=== PATIENT | female | born 1955 | race Two or more races ===

== ENCOUNTER 2024-08-21 06:10 | Inpatient (IN) | payer MEDICARE, OTHER ==
[~2024-08-21] VITALS: Ht 160 cm; Wt 72.0 kg
[2024-08-21 06:27] VITALS: PULSE 107; RESP 26
--- NOTE | 2024-08-21 06:40 | ED.PDOC ---
History of Present Illness HPI Comments 69F BIBA w/ no prior Hx associated to the c/c of ABD pain. EMS report that pt was picked up from home, stating of having RLQ pain which radiates to the lower right back, as well as SOB. EMS state the Pt's BP on right arm was 135 systolic and the left arm being 175 systolic, Left lower lobe wheezing w/ diminished on right lower lobe on scene. EMS state that the pt informed them that she was mixing bleach with another chemical above the sink 2 weeks ago, and accidentally "burned her airway". Pt is pale when arrived to ER. PMHx of HTN. Denies chills, fever, N/V/D, CP or no other associated symptoms, modifiers, recent injuries or sick contacts at this time. Chief Complaint: Abdominal Pain Time Seen by MD: 06:20 Reviewed Notes: Nurses Notes, Delimber Operator Notes, Medications, Allergies Allergies: Coded Allergies: NO KNOWN ALLERGIES (Unverified , 08/21/24) Information Source: Emergency Med Personnel Mode of Arrival: EMS Severity: Moderate Timing: Hours Duration: Since onset, Hours Prehospital treatment: None Past Medical History PAST MEDICAL HISTORY: HTN Surgical History: Denies all surgeries TALENT DEVELOPMENT MANAGER History: No Pertinent TALENT DEVELOPMENT MANAGER History Family History Family History: Reviewed,noncontributory to illness, Unknown Social History Smoker: Non-Smoker Alcohol: Denies ETOH Use Drugs: Denies Drug Use Lives In: Home Constitutional: denies: chills, diaphoresis, fatigue, fever, malaise, sweats, weakness, others EENTM: denies: blurred vision, double vision, ear bleeding, ear discharge, ear drainage, ear pain, ear ringing, eye pain, eye redness, hearing loss, mouth pain, mouth swelling, nasal discharge, nose bleeding, nose congestion, nose pain, photophobia, tearing, throat pain, throat swelling, voice changes, others Respiratory: reports: shortness of breath; denies: cough, hemoptysis, orthopnea, SOB at rest, SOB with excertion, stridor, wheezing, others Cardiovascular: denies: chest pain, dizzy spells, diaphoresis, Dyspnea on exertion, edema, irregular heart beat, left arm pain, lightheadedness, palpitations, PND, syncope, others Gastrointestinal: reports: abdominal pain; denies: abdomen distended, blood streaked bowels, constipated, diarrhea, dysphagia, difficulty swallowing, hematemesis, melena, nausea, poor appetite, poor fluid intake, rectal bleeding, rectal pain, vomiting, others Genitourinary: denies: abnormal vagina bleeding, burning, dyspareunia, dysuria, flank pain, frequency, hematuria, incontinence, pain, , vagina discharge, urgency, others Neurological: denies: dizziness, fainting, headache, left sided numbness, left sided weakness, numbness, paresthesia, pre-existing deficit, right sided numbness, right sided weakness, seizure, speech problems, tingling, tremors, weakness, others Musculoskeletal: reports: back pain; denies: gout, joint pain, joint swelling, muscle pain, muscle stiffness, neck pain, others Integumetry: denies: bruises, change in color, change in hair/nails, dryness, laceration, lesions, lumps, rash, wounds, others Allergic/Immunocompromised: denies: Difficulty Healing, Frequent Infections, Hives, Itching, others Hematologic/Lymphatic: denies: anemia, blood clots, easy bleeding, easy br uising, swollen glands, others Endocrine: denies: excessive hunger, excessive sweating, excessive thirst, excessive urination, flushing, intolerance to cold, intolerance to heat, unexplained weight gain, unexplained weight loss, others Psychiatric: denies: anxiety, bipolar disorder, depression, hopeless, panic disorder, schizophrenia, sleepless, suicidal, others All Other Systems: Reviewed and Negative Physical Exam General Appearance: Normal, Severe Distress HEENT: Normal ENT Inspection, Pharynx Normal, TMs Normal Neck: Full Range of Motion, Non-Tender, Normal, Normal Inspection Respiratory: Accessory Muscle Use, Chest Non-Tender, Respiratory Distress, Other (Had to intubate the patient) Cardiovascular: No Edema, No JVD, No Murmur, No Gallop, Normal Peripheral Pulses, Tachycardia Breast Exam: Deferred Gastrointestinal: No Organomegaly, Non Tender, No Pulsatile Mass, Normal Bowel Sounds, Soft Genitalia: Deferred Pelvic: Deferred Rectal: Deferred Extremities: No calf tenderness, Normal capillary refill, Normal range of motion, Non-tender, No pedal edema, Other (Moving all extremities) Musculoskeletal : Apperance: Normal Neurologic: Disoriented, No Motor Deficits, No Sensory Deficits Cerebellar Function: NOT DONE Reflexes: NOT DONE Skin: Dry, Pallor, Warm, Other (Skin mottled) Peripheral Pulses: 3+ Radial (R), 3+ Radial (L) Lymphatic: No Adenopathy Was a procedure done? Was a procedure done?: Yes Sedation Sedation?: No Central Line Recorder of insertion practice: [employer] Occupation of senior windows systems engineer: Attending Physician Indication: Hypotension, CVP monitoring Room prepared for procedure: Yes [employer] performed hand hygien: Yes Maximal sterile barrier precau: Mask/Eye shield, Sterile gown Skin Preparation: Chlorhexidine gluconate, Providine iodine Skin preparation completely dr: Yes Insertion site: Right, Internal jugular Central line catheter type: [id number] dialysis Number of lumens: 3 Antiseptic ointment applied to: Yes Post Assessment: Chest X-Ray Intubation Indication: Respiratory Insufficiency Prep: Preoxygenation Pretreated with: Analgesia Medicated with: Vecuronium Intubation Approach: Orotracheal Intubation size: cm (8) Differential Dx Considerations may include: COPD Pneumonia X-Ray, Labs, Meds, VS Vital Signs Date Time Temp Pulse Resp B/P (MAP) Pulse Ox O2 Delivery O2 Flow Rate FiO2 08/21/24 08:16 129 178/80 08/21/24 08:04 156/86 08/21/24 06:47 111 18 170/90 (116) 95 100 08/21/24 06:44 170/90 08/21/24 06:27 107 26 171/97 (121) 08/21/24 06:27 107 26 Nasal Cannula* 4 36 08/21/24 06:12 109 08/21/24 06:10 115 33 175/95 (121) 95 Lab Test 08/21/24 07:58 08/21/24 07:28 08/21/24 07:13 08/21/24 06:29 Range/Units Lactic Acid Level Pending 10.5 *H 0.4-2.0 mmol/L Troponin I High Sensitivity 4380 *H 4639 *H </=34 ng/L Urine Color Yellow Yellow Urine Clarity Clear Clear Urine pH 6.0 5.0-9.0 Urine Specific [place] 1.033 1.001-1.035 Urine Protein 1+ H Negative Urine Ketones 3+ H Negative Urine Blood Negative Negative /uL Urine Nitrite Negative Negative Urine Bilirubin Negative Negative Urine Urobilinogen 2 H Negative mg/dL Urine Leukocyte Esterase Negative Negative /uL Urine RBC <1 0 - 4 /hpf Urine Microscopic WBC 1 0-5 /HPF Urine Squamous Epithelial Cells Few <5 /hpf Urine Bacteria None seen None Seen /hpf Urine Mucus Few None Seen Urine Glucose Normal Normal mg/dL White Blood Count 22.1 H 4.4-10.8 10^3/uL Red Blood Count 3.60 L 4.0-5.20 10^6/uL Hemoglobin 13.4 12.2-16.2 g/dL Hematocrit 41.5 36.0-46.0 % Mean Corpuscular Volume 115.5 H 80.0-100.0 fL Mean Corpuscular Hemoglobin 37.2 H 28.0-32.0 pg Mean Corpuscular Hemoglobin Concent 32.3 32.0-36.0 g/dL Red Cell Distribution Width 15.0 H 11.8-14.3 % Platelet Count 488 H 140-450 10^3/uL Mean Platelet Volume 9.5 6.9-10.8 fL Neutrophils (%) (Auto) 91.1 H 37.0-80.0 % Lymphocytes (%) (Auto) 5.4 L 10.0-50.0 % Monocytes (%) (Auto) 3.3 0.0-12.0 % Eosinophils (%) (Auto) 0.0 0.0-7.0 % Basophils (%) (Auto) 0.2 0.0-2.0 % Neutrophils # (Auto) 20.1 H 1.6-8.6 10 ^3/uL Lymphocytes # (Auto) 1.2 0.4-5.4 10 ^3/uL Monocytes # (Auto) 0.7 0-1.3 10 ^3/uL Eosinophils # (Auto) 0 0-0.8 10 ^3/uL Basophils # (Auto) 0 0-0.2 10 ^3/uL Nucleated Red Blood Cells 0.0 % Sodium Level 134 L 136-145 mmol/L Potassium Level 3.8 3.5-5.1 mmol/L Chloride Level 101 98-107 mmol/L Carbon Dioxide Level 11 L 20-31 mmol/L Anion Gap 22 H 5-15 Blood Urea Nitrogen 11 9-23 mg/dL Creatinine 1.08 H 0.550-1.02 mg/dL Glomerular Filtration Rate Calc 56 >90 mL/min BUN/Creatinine Ratio 10.2 10.0-20.0 Serum Glucose 382 H 74-106 mg/dL Calcium Level 10.2 8.7-10.4 mg/dL Current Medications Medications (Trade) Dose Ordered Sig/Kathleen Route Start Time Stop Time Status Last Admin Albuterol (Ventolin Medneb) 5 mg ONCE ONCE NEB 08/21/24 06:45 08/21/24 06:46 DC 08/21/24 07:18 Ipratropium [place] (Atrovent Medneb) 0.5 mg ONCE ONCE NEB 08/21/24 06:45 08/21/24 06:46 DC 08/21/24 07:17 Methylprednisolone Sodium Succinate (Solu Medrol) 125 mg ONCE ONCE IV 08/21/24 06:45 08/21/24 06:46 DC 08/21/24 07:22 Sodium Chloride 1,000 ml @ 1,000 mls/hr Q1H ONCE IV 08/21/24 06:45 08/21/24 07:44 DC 08/21/24 06:53 Rocuronium [place] 100 mg ONCE ONCE IV 08/21/24 06:45 08/21/24 06:46 DC 08/21/24 06:44 Etomidate 20 mg ONCE ONCE IV 08/21/24 06:45 08/21/24 06:46 DC 08/21/24 06:47 Midazolam HCl 50 ml @ 1 mls/hr Q24H IV 08/21/24 07:15 08/21/24 08:04 Ceftriaxone Sodium 50 ml @ 100 mls/hr ONCE ONCE IV 08/21/24 07:15 08/21/24 07:44 DC 08/21/24 07:20 Clindamycin Phosphate 50 ml @ 50 mls/hr ONCE ONCE IV 08/21/24 07:15 08/21/24 08:14 DC 08/21/24 08:16 Labetalol HCl (Labetalol HCl) 10 mg ONCE ONCE IV 08/21/24 07:45 08/21/24 07:46 DC 08/21/24 08:16 Sodium Chloride 1,000 ml @ 1,160 mls/hr Q52M ONCE IV 08/21/24 08:15 08/21/24 09:06 08/21/24 08:15 Patient slightly disoriented. Able to answer simple questions. Moving all extremities. Tachycardia. Skin mottled. She is pale. Unable to get good history from the patient. She does live alone. Possibly had chemical ingestion several weeks ago. Possible pneumonitis. Possible pneumonia. Chest x-ray reviewed does show combination. Establish intravenous access. Central line placement. Intubation. Started Rocephin. Was given clindamycin for possible aspiration pneumonia. Blood pressure slightly elevated. Continue to monitor. Was given labetalol. Sepsis protocol. EKG reviewed does show ST changes. Reviewed with Cardiology. She will need echocardiogram. Cardiology consultation. Continue to monitor. ABG reviewed does show metabolic acidosis. Was given bicarbonate. Time of 1ST Reevaluation: 06:50 Reevaluation 1ST: Unchanged Patient Education/Counseling: Diagnosis, Treatment, Prognosis Family Education/Counseling: No Family Present Departure 1 Departure Time of Disposition: 07:26 Impression: Primary Impression: Acute respiratory failure Qualified Codes: J96.01 - Acute respiratory failure with hypoxia Additional Impressions: Aspiration pneumonia Qualified Codes: J69.0 - Pneumonitis due to inhalation of food and vomit Sepsis Qualified Codes: A41.9 - Sepsis, unspecified organism Hypertensive urgency NSTEMI (non-ST elevated myocardial infarction) Disposition: 09 ADMITTED INPATIENT Admit to: ICU Condition: Guarded Critical Care Note Critical Care Time?: Yes (90 min-critical care time only) Stability Stability form required: No Heart Score Heart Score: Heart Score Response (Comments) Value History Slightly Suspicious 0 EKG Normal 0 Age >65 2 Risk Factors >3 or Hx ASHD 2 Troponin >3 x's Normal limit 2 Total 6 I personally scribed for DIANA GUTIERREZ MD ([email or web address]) on 08/21/24 at 06:40. Electronically submitted by Silver Davis ([email or web address]). DIANA GUTIERREZ MD Aug 21, 2024 06:40
[2024-08-21] MEDS: ROCURONIUM 10MG/ML 10ML VIAL IV ONE ×3 (06:44→06:53)
[2024-08-21] MEDS: SODIUM CHLORIDE 0.9% 1,000 ML IV ONE ×3 (06:45→08:15)
[2024-08-21] MEDS: ETOMIDATE (2MG/ML) 20ML VIAL IV ONE ×2 (06:47→06:53)
[2024-08-21] MEDS: MIDAZOLAM DRIP 50 mg/50mL 50 ML IV ONE (07:09)
[2024-08-21 07:13] LABS: Urine Bacteria None Seen /hpf (None Seen)
[2024-08-21] MEDS: IPRATROPIUM BROM 0.5 MG/2.5ML INH SOL NEB ONE (07:17)
[2024-08-21] MEDS: ALBUTEROL SULF 2.5 MG/0.5ML(0.5%) NEB SOLN NEB ONE (07:18)
[2024-08-21] MEDS: cefTRIAXone 1GM/50ML D5W 50 ML IV ONE (07:20)
[2024-08-21 07:21] LABS: Basophils # (auto) 0 10 ^3/uL (0-0.2); Eosinophils # (auto) 0 10 ^3/uL (0-0.8); Lymphocytes # (auto) 1.2 10 ^3/uL (0.4-5.4)
--- NOTE | 2024-08-21 07:21 | DVH ---
EXAM: XR Chest, 1 View CLINICAL INDICATION: sob TECHNIQUE: Frontal view of the chest. COMPARISON: None FINDINGS: LUNGS AND PLEURAL SPACES: Pulmonary congestion and edema. Pneumonia cannot be excluded. No pneumot horax. HEART: Unremarkable. No cardiomegaly. MEDIASTINUM: Unremarkable. Normal mediastinal contour. BONES/JOINTS: Unremarkable. No acute fracture. TUBES, LINES AND DEVICES: The endotracheal tube (ETT) is in satisfactory position. Right internal jugular central venous catheter tip in the superior vena cava. Enteric tube tip in the stomach. OTHER FINDINGS: . IMPRESSION: Pulmonary congestion and edema. Pneumonia cannot be excluded.
[2024-08-21 07:22] LABS: Basophils % (auto) 0.2 % (0.0-2.0); Hematocrit 41.5 % (36.0-46.0); Hemoglobin 13.4 g/dL (12.2-16.2); Lymphocytes % (auto) 5.4 % (10.0-50.0); Mean Corpuscular Hemoglobin 37.2 pg (28.0-32.0); Mean Corpuscular Hgb Conc. 32.3 g/dL (32.0-36.0); Mean Corpuscular Volume 115.5 fL (80.0-100.0); Monocytes # (auto) 0.7 10 ^3/uL (0-1.3); Monocytes % (auto) 3.3 % (0.0-12.0); Neutrophils # (auto) 20.1 10 ^3/uL (1.6-8.6); Neutrophils % (auto) 91.1 % (37.0-80.0); Platelet Count (auto) 488 10^3/uL (140-450); White Blood Cell 22.1 10^3/uL (4.4-10.8)
[2024-08-21] MEDS: methylPREDNISolone SOD SUCC 125 MG/2 ML VL IV ONE (07:22)
[2024-08-21 07:28] LABS: Chloride 101 mmol/L (98-107); Potassium 3.8 mmol/L (3.5-5.1)
[2024-08-21 07:29] LABS: Anion Gap 22 (5-15); Calcium 10.2 mg/dL (8.7-10.4)
[2024-08-21 07:34] LABS: BUN/Creatinine Ratio 10.2 (10.0-20.0); Blood Urea Nitrogen 11 mg/dL (9-23)
[2024-08-21 07:36] LABS: Carbon Dioxide 11 mmol/L (20-31); Glucose 382 mg/dL (74-106); Sodium 134 mmol/L (136-145)
[2024-08-21 07:38] LABS: Urine Blood Negative /uL (Negative); Urine Clarity Clear (Clear); Urine Color Yellow (Yellow); Urine Mucus FEW (None Seen); Urine Protein, UAD 1+ (Negative); Urine Specific Gravity 1.033 (1.001-1.035); Urine Squamous Epithelial Cell FEW /hpf (<5); Urine Urobilinogen 2 mg/dL (Negative); Urine WBC 1 /HPF (0-5)
[2024-08-21 07:40] LABS: Lactic Acid w/Reflex 10.5 mmol/L (0.4-2.0)
[2024-08-21] MEDS: HEPARIN SODIUM (PORCINE) 5000 UNITS/ML 1ML VIAL IV ONE (07:45)
[2024-08-21] MEDS: MIDAZOLAM DRIP 50 mg/50mL 50 ML IV SCH (08:04)
[2024-08-21] MEDS: LABETALOL HCL 20 MG/4 ML VL IV ONE (08:16)
[2024-08-21] MEDS: CLINDAMYCIN 300MG IV 50 ML IV ONE (08:16)
[2024-08-21 08:21] LABS: Base Excess -17.8 mmol/L (-2.0-3.0)
[2024-08-21] MEDS ORDERED: ACETAMINOPHEN 325 MG TAB PO PRN (08:30)
[2024-08-21] MEDS: SODIUM CHLORIDE 0.9% 1,000 ML IV SCH (08:30)
[2024-08-21] MEDS ORDERED: NITROGLYCERIN 0.4 MG SL TAB SL PRN (08:30)
[2024-08-21] MEDS ORDERED: ONDANSETRON HCL 4 MG/2 ML VIAL IV PRN (08:30)
[2024-08-21] MEDS ORDERED: DEXTROSE (50%) 50ML SYRG IV PRN (08:30)
[2024-08-21] MEDS: SODIUM BICARB 8.4% 50Meq/50ml SYR Vial IV ONE ×2 (08:30→09:15)
[2024-08-21] MEDS ORDERED: MORPHINE SULFATE INJ 2 MG/ml SYRG IV PRN (08:30)
[2024-08-21] MEDS: EPINEPHrine HCL 1 MG/10 ML SYRG IV ONE (08:38)
[2024-08-21] MEDS: EPINEPHrine HCL 250 ML IV ONE (08:40)
[2024-08-21] MEDS: EPINEPHrine HCL 250 ML IV SCH (08:49)
[2024-08-21] MEDS: DOPamine 1600MCG/ML D5W 250 ML IV SCH (08:49)
--- NOTE | 2024-08-21 08:54 | DVHHP2 ---
History of Present Illness Reason for Visit: SOB History of Present Illness Yesy Ibarra is a 69-year-old female with past medical history of hypertension and arthritis who presents to the ED with shortness of breath. Per daughter at bedside Lucia she reports that her mom called her at 5:00 a.m. this morning and when she had shown up to her residence where she lives alone her mom had tongue swelling and was complaining of shortness of breath. Patient's daughter states that 2 weeks ago her mom was cleaning the house with CLR with a mop. Per daughter she states that her mom was complaining of possibly burning her airway and refused to go to see a doctor or go to the hospital. The patient's daughter she states that her had few years ago and then her sister had around the same time and her mom has been pretty depressed and reluctant to go into hospital's her Ca provider. Daughter states that she gave her mom Mucinex to take and also her albuterol inhaler which provided minimal relief. Daughter also reports that her mom has fallen multiple times either from the has been falling on top of her or hitting her chin on the ground which caused several of her teeth to become dislodged. Per daughter she states that mom does not also take medications for her high blood pressure because it makes her teeth become loose. Currently at this time patient is intubated on the ventilator. Patient's daughter also reports that patient quit smoking cigarettes, drinks alcohol occasionally, and does not use illicit drugs. Patient's daughter also reports that her mom does not have diabetes and she eats healthy but just has not had an appetite due to the recent loss of loved ones. Daughter states that she lives close by and checks on her mom regularly. Cardiovascular: HTN Past Medical History Arthritis Past Surgical History: None Family History: Other (Spouse and sister ) Smoke: Quit ALCOHOL: occassional Drugs: None Lives: Alone Domestic Violence: Neg Review of Systems Respiratory: Shortness of breath Allergies: Coded Allergies: NO KNOWN ALLERGIES (Unverified , 08/21/24) Medications Current Medications Medications Dose Ordered Sig/Kathleen Route Start Time Stop Time Status Last Admin Dose Admin Midazolam HCl 50 ml @ 1 mls/hr Q24H IV 08/21/24 07:15 08/21/24 08:04 1 MLS/HR Ceftriaxone Sodium 50 ml @ 100 mls/hr DAILY@09 IV 08/21/24 09:00 UNV Clindamycin Phosphate 50 ml @ 50 mls/hr Q8HR IV 08/21/24 14:00 UNV Methylprednisolone Sodium Succinate 80 mg Q8HR IV 08/21/24 14:00 UNV Albuterol 2.5 mg Q4HR NEB 08/21/24 10:00 UNV Ipratropium [place] 0.5 mg Q4HR NEB 08/21/24 10:00 UNV Sodium Chloride 1,000 ml @ 100 mls/hr Q10H IV 08/21/24 08:30 UNV Ondansetron HCl 4 mg Q4HP PRN IV 08/21/24 08:30 UNV Enoxaparin Sodium 40 mg DAILY SC 08/21/24 10:00 UNV Acetaminophen 650 mg Q6HP PRN PO 08/21/24 08:30 UNV Nitroglycerin 0.4 mg Q5MINP PRN SL 08/21/24 08:30 UNV Morphine Sulfate 2 mg Q30M PRN IV 08/21/24 08:30 UNV Diagnostic Test (Pha) 1 strip Q6HR 08/21/24 12:00 UNV Insulin Human Regular Q6HR SC 08/21/24 12:00 UNV Dextrose 50 ml UD PRN IV 08/21/24 08:30 UNV Exam Vital Signs Vital Signs Date Time Temp Pulse Resp B/P (MAP) Pulse Ox O2 Delivery O2 Flow Rate FiO2 08/21/24 08:16 129 178/80 08/21/24 06:47 18 95 100 08/21/24 06:27 Nasal Cannula* 4 HEENT: Atraumatic Respiratory: Normal air movement Cardiovascular: Normal S1, Normal S2, No murmurs Abdominal: Soft Extremities: No clubbing, No cyanosis, No edema, Normal pulses Labs/Xrays Labs Test 08/21/24 08:15 08/21/24 07:58 08/21/24 07:28 08/21/24 07:13 Range/Units Blood Gas Specimen Type Arterial Blood Gas Sample Site Right radial Blood Gas Patient Temperature 37.0 Arterial Blood Date Drawn [id number] Arterial Blood pH 7.060 *L 7.350-7.450 Arterial Blood Partial Pressure CO2 43.8 32.0-45.0 mmHg Arterial Blood Partial Pressure O2 131.8 H 83.0-108.0 mmHg Arterial Blood HCO3 12.1 L 21.0-28.0 mmol/L Arterial Blood Oxygen Saturation 97.4 94.0-98.0 % Arterial Blood Base Excess -17.8 L -2.0-3.0 mmol/L Arterial Blood Oxyhemoglobin 96.3 94.0-98.0 % Arterial Blood Carboxyhemoglobin 0.8 0.5-1.5 % Arterial Blood Methemoglobin 0.3 0.0-1.5 % Saul Test Modified Blood Gas Total Hemoglobin 14.30 12.0-16.0 g/dL Blood Gas Set Respiration Rate 18.0 Blood Gas Modality Vent - ac FiO2 % 100.0 Blood Gas Tidal Volume 500.0 Blood Gas PEEP or CPAP 5.0 Blood Gas Critical Value Read Back Yes Blood Gas Notified Whom Shelbi simmons md Blood Gas Notified Time [id number] Blood Gas Notified By Yvon winn rrt Troponin I High Sensitivity 4380 *H </=34 ng/L Urine Color Yellow Yellow Urine Clarity Clear Clear Urine pH 6.0 5.0-9.0 Urine Specific [place] 1.033 1.001-1.035 Urine Protein 1+ H Negative Urine Ketones 3+ H Negative Urine Blood Negative Negative /uL Urine Nitrite Negative Negative Urine Bilirubin Negative Negative Urine Urobilinogen 2 H Negative mg/dL Urine Leukocyte Esterase Negative Negative /uL Urine RBC <1 0 - 4 /hpf Urine Microscopic WBC 1 0-5 /HPF Urine Squamous Epithelial Cells Few <5 /hpf Urine Bacteria None seen None Seen /hpf Urine Mucus Few None Seen Urine Glucose Normal Normal mg/dL Test 08/21/24 06:29 Range/Units White Blood Count 22.1 H 4.4-10.8 10^3/uL Red Blood Count 3.60 L 4.0-5.20 10^6/uL Hemoglobin 13.4 12.2-16.2 g/dL Hematocrit 41.5 36.0-46.0 % Mean Corpuscular Volume 115.5 H 80.0-100.0 fL Mean Corpuscular Hemoglobin 37.2 H 28.0-32.0 pg Mean Corpuscular Hemoglobin Concent 32.3 32.0-36.0 g/dL Red Cell Distribution Width 15.0 H 11.8-14.3 % Platelet Count 488 H 140-450 10^3/uL Mean Platelet Volume 9.5 6.9-10.8 fL Neutrophils (%) (Auto) 91.1 H 37.0-80.0 % Lymphocytes (%) (Auto) 5.4 L 10.0-50.0 % Monocytes (%) (Auto) 3.3 0.0-12.0 % Eosinophils (%) (Auto) 0.0 0.0-7.0 % Basophils (%) (Auto) 0.2 0.0-2.0 % Neutrophils # (Auto) 20.1 H 1.6-8.6 10 ^3/uL Lymphocytes # (Auto) 1.2 0.4-5.4 10 ^3/uL Monocytes # (Auto) 0.7 0-1.3 10 ^3/uL Eosinophils # (Auto) 0 0-0.8 10 ^3/uL Basophils # (Auto) 0 0-0.2 10 ^3/uL Nucleated Red Blood Cells 0.0 % Sodium Level 134 L 136-145 mmol/L Potassium Level 3.8 3.5-5.1 mmol/L Chloride Level 101 98-107 mmol/L Carbon Dioxide Level 11 L 20-31 mmol/L Anion Gap 22 H 5-15 Blood Urea Nitrogen 11 9-23 mg/dL Creatinine 1.08 H 0.550-1.02 mg/dL Glomerular Filtration Rate Calc 56 >90 mL/min BUN/Creatinine Ratio 10.2 10.0-20.0 Serum Glucose 382 H 74-106 mg/dL Calcium Level 10.2 8.7-10.4 mg/dL EXAM: XR Chest, 1 View CLINICAL INDICATION: sob TECHNIQUE: Frontal view of the chest. COMPARISON: None FINDINGS: LUNGS AND PLEURAL SPACES: Pulmonary congestion and edema. Pneumonia cannot be excluded. No pneumothorax. HEART: Unremarkable. No cardiomegaly. MEDIASTINUM: Unremarkable. Normal mediastinal contour. BONES/JOINTS: Unremarkable. No acute fracture. TUBES, LINES AND DEVICES: The endotracheal tube (ETT) is in satisfactory p osition. Right internal jugular central venous catheter tip in the superior vena cava. Enteric tube tip in the stomach. OTHER FINDINGS: . IMPRESSION: Pulmonary congestion and edema. Pneumonia cannot be excluded. Assessment/Plan Assessment/Plan Assessment NSTEMI Acute hypoxic respiratory failure Pneumonia probable sepsis Lactic acidosis likely due to sepsis Leukocytosis likely due to sepsis Hypertensive urgency Acute respiratory acidosis Hyponatremia ADITI Hyperglycemia History of hypertension History of arthritis Plan Admit to ICU Intubated on ventilator Pulmonary consulted UA Chest x-ray noted IV antibiotics-clindamycin + ceftriaxone IV fluids Duo nebs IV steroids CT abdomen and pelvis Beta-blockers ordered in ED Cardiac consult CT head ABG Respiratory culture Trend troponins Lactic level Blood cultures EKG Discussed plan of care with patient's daughter and nurse Per daughter patient does not take any prescription medications DVT prophylaxis-Lovenox PUD prophylaxis-famotidine Pressor as needed to keep maps greater than 65 Angio today Plan discussed with: Daughter My Orders Orders - ABI SALAZAR INSURANCE CODER Procedure Category Date Status Time Ceftriaxone 1gm/50ml PHA 08/21/24 Logged D5w (Rocephin) 09:00 Clindamycin 600mg Iv PHA 08/21/24 Logged (Cleocin Iv) 14:00 Methylprednisolone PHA 08/21/24 Logged Sod Succ (Solu Medrol 14:00 Albuterol Medneb PHA 08/21/24 Logged (Ventolin Medneb) 10:00 Ipratropium Medneb PHA 08/21/24 Logged (Atrovent Medneb) 10:00 Admit ADMIT 08/21/24 Transmitted 08:28 Allergies MAX 08/21/24 In Process 08:28 Code Status CODE 08/21/24 Transmitted 08:28 Sodium Chloride 0.9% PHA 08/21/24 Logged 08:30 Ondansetron Hcl PHA 08/21/24 Logged (Zofran) 08:30 Enoxaparin Sodium PHA 08/21/24 Logged (Lovenox) 10:00 Complete Blood Count LAB 08/22/24 Verified 04:00 Comprehensive LAB 08/22/24 Verified Metabolic Panel 04:00 Npo (Nothing By DIET 08/21/24 Transmitted Mouth) Diet Breakfast Echo 2d Mode Cardiac US 08/21/24 Logged DOP 08:28 Acetaminophen Tablet PHA 08/21/24 Logged (Tylenol Tablet) 08:30 Nitroglycerin PHA 08/21/24 Logged Sublingual (Ntrostat 08:30 Morphine Sulfate PHA 08/21/24 Logged Injection 08:30 Stat Ekg For Chest MAX 08/21/24 In Process Pain 08:28 Notify Of Changes MAX 08/21/24 In Process From Base 08:28 Record Center Specialist For MAX 08/21/24 In Process 24 Hours 08:28 Emergency Dysrhythmia MAX 08/21/24 In Process Protocol 08:28 Rhythm Strips Once MAX 08/21/24 In Process Every Shift 08:28 Oxygen By Nasal RT 08/21/24 Transmitted Cannula 08:28 Glucose Blood PHA 08/21/24 Logged (Accu-Chek Comfort 12:00 Insulin R (Human) PHA 08/21/24 Logged (Insulin R) 12:00 Dextrose 50% Syringe PHA 08/21/24 Logged 08:30 Hemoglobin A1c LAB 08/21/24 Logged 08:28 Date of Service: Aug 21, 2024 Billing Provider: ABI SALAZAR Common Visit Codes: [id number] INP/OBS CARE (HIGH) ABI SALAZAR Aug 21, 2024 08:53
[2024-08-21] MEDS: cefTRIAXone 1GM/50ML D5W 50 ML IV SCH (09:00)
[2024-08-21 09:25] VITALS: TEMP 95.9
--- NOTE | 2024-08-21 09:26 | DVH ---
CT HEAD WITHOUT CONTRAST INDICATION: altered EXAM DATE: 08/21/2024 08:50 AM COMPARISON: None RADIATION DOSE: CTDIvol: 47.81 mGy, DLP: 865.2 mGy*cm PROCEDURE: CT scans of the head were obtained from the vertex to the skull base. Sagittal and coronal reconstructions were provided. All CT scans at this medical facility are performed using dose modulation techniques as appropriate t o a performed exam including the following: Automated exposure control was utilized; adjustment of th e MA and/or KV according to patient size; and use of iterative reconstruction technique. FINDINGS: There is sulcal and ventricular prominence. The brainshows normal morphology and banerjee-whi te matter differentiation, without intracranial hemorrhage, extra-axial fluid collection, mass effect or acute large vessel infarct. The ventricles are normal in size. The basal cisterns are patent. The skull and visible facial bones are intact. The paranasal sinuses, mastoid air cells and middle ear c avities are well-aerated. The soft tissues of the scalp are unremarkable. IMPRESSION: No acute intracranial abnormality.
--- NOTE | 2024-08-21 09:31 | DVH ---
CT CHST AB PEL WO CON-NO IV/ORAL INDICATION: PULMONARY CONGESTION; ABDOMINAL PAIN EXAM DATE: 08/21/2024 08:52 AM COMPARISON: None RADIATION DOSE: CTDIvol: 10.02 mGy, DLP: 609.56 mGy*cm PROCEDURE: Helical CT images were obtained of the chest, abdomen, and pelvis without intravenous cont rast. Sagittal and coronal reconstructions are provided. ORAL CONTRAST: None. ADDITIONAL IMAGES / REFORMATS: None All CT scans at this medical facility are performed using dose modulation techniques as appropriate t o a performed exam including the following: Automated exposure control was utilized; adjustment of th e MA and/or KV according to patient size; and use of iterative reconstruction technique. FINDINGS: CHEST: BONES: Scattered degenerative changes are noted in the visualized osseous structures. CHEST WALL: Normal. SOFT TISSUES:Normal. MEDIASTINUM: Normal. HEART: Normal. VESSELS: Central venous catheter is seen. LYMPH NODES: Normal. PLEURA: Small bilateral pleural effusion. AIRWAYS: And endotracheal tube is seen in the lower thoracic trachea. LUNG: Diffuse bilateral ground glass opacities with basilar consolidation. ABDOMEN AND PELVIS: BONES: Scattered degenerative changes are noted in the visualized osseous structures. LIVER: Normal. GALLBLADDER AND BILIARY TREE: No calcified gallstones. Normal caliber wall. No intra- or extrahepatic biliary ductal dilation. PANCREAS: Mild peripancreatic fat stranding / edema.. SPLEEN: Normal. BOWEL: Mild colonic diverticulosis. Normal appendix. Rectal tube is seen.. ADRENALS: Normal. KIDNEYS AND URETER: Bilateral nonobstructive kidney stones.. BLADDER: Decompressed with a rosario. REPRODUCTIVE ORGANS: Normal. LYMPH NODES:No lymphadenopathy. PERITONEUM: No ascites or free air. No other fluid collection. VESSELS: Normal RETROPERITONEUM: Normal. ABDOMINAL WALL: Normal. IMPRESSION: Diffuse bilateral ground glass opacities with basilar consolidation. This could be severe pulmonary e raymond, pneumonia, ARDS. Mild peripancreatic fat stranding / edema could be mild pancreatitis. Bilateral nonobstructive kidney stones.
--- NOTE | 2024-08-21 09:34 | RESUS ---
CODE BLUE ASSESSSMENT History of Events History of Events: Patient is currently intubated. Awaiting admit orders. Per primary RN, patient was transported to radiology for ordered CT scan where patient was noted to become bradycardic. Upon assessment no pulse detected. CODE BLUE initiated. Initial Information Date: Aug 21, 2024 Time: 08:39 Location of Arrest: ER Arrest Witnessed: Yes CPR started initial time: 08:39 CPR started by whom: Hospital Staff Pre-Hospital Care: ACLS Type of arrest: Cardiac, Respiratory Spontaneous Respirations: No Pulse Present: No Monitoring: Telemetry Crash Cart Opened and Supplies: Yes Airway Ventilation Breathing at Onset: Assisted Oxygen Delivery Method: Ambu-Bag Artificial Ventilation: Bag/Endo tube Comments: patient intubated prior to CODE BLUE Circulation Circulation #1: Time: 08:42 Circulation Comment: asystole Circulation #2: Time: 08:44 Circulation Comment: asystole Circulation #3: Time: 08:46 Circulation Comment: PEA Circulation #4: Time: 08:48 Pulse Rate (adult): 52 Blood Pressure Systolic: 88 Blood Pressure Diastolic: 61 Temperature (Fahrenheit): 95.5 Circulation Comment: bradycardic Medications & Response Medications and Responses #1: Medication Time: 08:40 ADULT Medications Given ADULT: Epinephrine 1 mg Route of Administration: IV EKG Rhythm: Asystole Medications and Responses #2: Medication Time: 08:41 ADULT Medications Given ADULT: 2 Amps Na Bicarb Medications and Responses #3: Medication Time: 08:45 ADULT Medications Given ADULT: Epinephrine 1 mg Route of Administration: IV EKG Rhythm: Asystole Medications and Responses #4: Medication Time: 08:46 ADULT Medications Given ADULT: Sodium Bacarbinate 50 meq Route of Administration: IV Medications and Responses #5: Medication Time: 08:47 ADULT Medications Given ADULT: Magnesium Sulfate 1 gm, Calcium Chloride 10 mL Route of Administration: IV Medications and Responses #6: Medication Time: 08:48 ADULT Medications Given ADULT: Epinephrine 1 mg Route of Administration: IV EKG Rhythm: PEA Medications and Responses #7: Medication Time: 08:49 ADULT Medications Given ADULT: Sodium Bacarbinate 50 meq Procedure - Central Venous Cat Comment: placed prior to code blue Procedure - [place]aca Catheter Comment: placed prior to code blue Nurses Notes [place] Coma Scale Eye Opening: None (1) [place] Coma Scale Verbal: None (1) [place]andal Coma Scale Motor: None (1) Pupil Reaction: Non Reactive EKG Rhythm: Sinus Bradycardia Time Code Ended Time Code Ended: 08:48 Post Arrest Status: Ventilated Outcome of code: Successful Family notified: Yes Code Team Present: Dr Stephen Manning RT Arcelia Infante RN Keo Browne ROSC Time of ROSC: 08:48 Hollie Licea Aug 21, 2024 09:34
[2024-08-21 09:37] VITALS: BP 0/0
--- NOTE | 2024-08-21 09:40 | RESUS ---
CODE BLUE ASSESSSMENT History of Events History of Events: Patient transported from Radiology Department to ER. Shortly after initial Code Blue, patient noted to become bradicardic on bedside monitor technician. Upon assessment, no palpable pulse detected. CODE BLUE initiated Initial Information Date: Aug 21, 2024 Time: 09:15 Location of Arrest: ER Arrest Witnessed: Yes CPR started initial time: 09:15 CPR started by whom: Hospital Staff Pre-Hospital Care: ACLS Type of arrest: Cardiac, Respiratory Spontaneous Respirations: No Pulse Present: No Monitoring: Pulse Oximetry, Telemetry Crash Cart Opened and Supplies: Yes Airway Ventilation Breathing at Onset: Assisted Oxygen Delivery Method: Ambu-Bag Artificial Ventilation: Bag/Endo tube Comments: patient intubated prior to code blue Circulation Circulation : Time: 09:18 Pulse Rate (adult): 78 Blood Pressure Systolic: 138 Blood Pressure Diastolic: 70 Temperature (Fahrenheit): 95.4 Procedure - Central Venous Cat Comment: placed prior to code blue Procedure - Vaca Catheter Comment: placed prior to code blue Nurses Notes [place] Coma Scale Eye Opening: None (1) [place] Coma Scale Verbal: None (1) [place] Coma Scale Motor: None (1) [place] Total: 3 Pupil Reaction: Non Reactive Bedside Blood Glucose: 258 EKG Rhythm: Sinus Rhythm Time Code Ended Time Code Ended: 09:18 Post Arrest Status: Ventilated Outcome of code: Successful Family notified: Yes Code Team Present: Dr Stephen Qiu RN Kathie Paniagua RN Hollie Oconnell Aug 21, 2024 09:40
[2024-08-21 09:48] VITALS: PULSE 125; RESP 18; O2SAT 100
[2024-08-21] MEDS: ALBUTEROL SULF 2.5 MG/0.5ML(0.5%) NEB SOLN NEB SCH (10:00)
[2024-08-21] MEDS: FAMOTIDINE (10MG/ML) 2ML VL IV SCH (10:00)
[2024-08-21] MEDS: ENOXAPARIN SOD 40 MG/0.4 ML SYRINGE SC SCH (10:00)
[2024-08-21] MEDS: IPRATROPIUM BROM 0.5 MG/2.5ML INH SOL NEB SCH (10:00)
[2024-08-21] MEDS: FUROSEMIDE 40 MG/4 ML VIAL IV SCH (10:00)
--- NOTE | 2024-08-21 10:46 | DVHINCON2 ---
Date Seen: Aug 21, 2024 Referring Physician Stephen Reason for Consultation NSTEMI History of Present Illness 69-year-old female with PMH for HTN, arthritis, previous smoker quit 20 years prior presents to the hospital with shortness of breath. Patient currently intubated, information gathered mainly from chart review and daughter at bedside. Apparently 2 weeks prior patient was cleaning her house and mix CLR with some bleach and had a chemical reaction which affected patient was having increased shortness of breath and throat burning. Patient did not want to come to the hospital though apparently daughter finally made her as when she called her she sounded worse and unable to take significant deep breaths. Upon evaluation in the ER patient noted to have significant respiratory distress , ended up having coated in CT with CPR done and was intubated, ROSC achieved. Patient found to have elevated troponins trending 4639, 4380. CXR showing pulmonary congestion and edema possible pneumonia. CT showed bilateral ground- glass opacities with bibasilar consolidation severe pulmonary edema, pneumonia, ARDS. CT head negative for acute pathology. EKG reviewed and shows sinus tachycardia at 109 beats per minute, nonspecific intraventricular conduction delay. Lateral ST and T-wave depression. Past Medical History HTN, arthritis Past Surgical History Denies previous cardiac surgeries Family History Denies pertinent family cardiac history. Social History Previous smoker quit more than 20 years prior. Allergies: Coded Allergies: NO KNOWN ALLERGIES (Unverified , 08/21/24) Current Medications Current Medications Medications (Trade) Dose Ordered Sig/Kathleen Route PRN Reason Start Time Stop Time Status Last Admin Midazolam HCl 50 ml @ 1 mls/hr Q24H IV 08/21/24 07:15 08/21/24 08:04 Ceftriaxone Sodium 50 ml @ 100 mls/hr DAILY@09 IV 08/21/24 09:00 UNV Clindamycin Phosphate 50 ml @ 50 mls/hr Q8HR IV 08/21/24 14:00 UNV Methylprednisolone Sodium Succinate (Solu Medrol) 80 mg Q8HR IV 08/21/24 14:00 UNV Albuterol (Ventolin Medneb) 2.5 mg Q4HR NEB 08/21/24 10:00 UNV Ipratropium [place] (Atrovent Medneb) 0.5 mg Q4HR NEB 08/21/24 10:00 UNV Sodium Chloride 1,000 ml @ 100 mls/hr Q10H IV 08/21/24 08:30 UNV Ondansetron HCl (Zofran) 4 mg Q4HP PRN IV NAUSEA / VOMITING 08/21/24 08:30 UNV Enoxaparin Sodium (Lovenox) 40 mg DAILY SC 08/21/24 10:00 UNV Acetaminophen (Tylenol Tablet) 650 mg Q6HP PRN PO PAIN SCALE 1-3 OR TEMP>100.4 08/21/24 08:30 UNV Nitroglycerin (Ntrostat Sublingual) 0.4 mg Q5MINP PRN SL FOR CHEST PAIN 08/21/24 08:30 UNV Morphine Sulfate 2 mg Q30M PRN IV FOR CHEST PAIN 08/21/24 08:30 UNV Diagnostic Test (Pha) (Accu-Chek Comfort Curve T) 1 strip Q6HR 08/21/24 12:00 UNV Insulin Human Regular (InsuLIN R) Q6HR SC 08/21/24 12:00 UNV Dextrose 50 ml UD PRN IV Blood Sugar LESS THAN 60 08/21/24 08:30 UNV Famotidine (Pepcid Injection) 20 mg DAILY IV 08/21/24 10:00 UNV Furosemide (Lasix Injection) 40 mg DAILY IV 08/21/24 10:00 UNV Dopamine HCl/ Dextrose 250 ml @ 13.5 mls/hr [id number] IV 08/21/24 09:45 UNV Epinephrine HCl 250 ml @ 7.5 mls/hr Q24H IV 08/21/24 09:45 UNV Review of Systems Deferred, patient intubated. Vital Signs Vital Signs Date Time Temp Pulse Resp B/P (MAP) Pulse Ox O2 Delivery O2 Flow Rate FiO2 08/21/24 09:48 125 18 100 Mechanical Ventilator+ 100 100 08/21/24 09:40 203.7 08/21/24 09:25 88/61 (70) 08/21/24 06:27 4 Physical Exam General appearance: Ill-appearing, in no acute distress. HEENT: Exam shows: Normocephalic, atraumatic, PERRLA, EOMI Neck: Supple, no bruits Chest: Equal chest excursion bilaterally. Breath sounds coarse rhonchi/diminished. Heart: Rhythm: Regular rate; no murmur or gallop Abdomen: Exam shows: Soft, nontender, nondistended Musculoskeletal: No clubbing, no cyanosis, no lower extremity edema Dermatology: Mottled Neurological: Exam shows: Intubated, nonresponsive Available prior records, labs, EKG, rhythm strips reviewed and interpreted Labs/Diagnostic Data Labs Test 08/21/24 08:15 08/21/24 07:58 08/21/24 07:28 08/21/24 07:13 Range/Units Blood Gas Specimen Type Arterial Blood Gas Sample Site Right radial Blood Gas Patient Temperature 37.0 Arterial Blood Date Drawn [id number] Arterial Blood pH 7.060 *L 7.350-7.450 Arterial Blood Partial Pressure CO2 43.8 32.0-45.0 mmHg Arterial Blood Partial Pressure O2 131.8 H 83.0-108.0 mmHg Arterial Blood HCO3 12.1 L 21.0-28.0 mmol/L Arterial Blood Oxygen Saturation 97.4 94.0-98.0 % Arterial Blood Base Excess -17.8 L -2.0-3.0 mmol/L Arterial Blood Oxyhemoglobin 96.3 94.0-98.0 % Arterial Blood Carboxyhemoglobin 0.8 0.5-1.5 % Arterial Blood Methemoglobin 0.3 0.0-1.5 % Saul Test Modified Blood Gas Total Hemoglobin 14.30 12.0-16.0 g/dL Blood Gas Set Respiration Rate 18.0 Blood Gas Modality Vent - ac FiO2 % 100.0 Blood Gas Tidal Volume 500.0 Blood Gas PEEP or CPAP 5.0 Blood Gas Critical Value Read Back Yes Blood Gas Notified Whom Shelbi simmons md Blood Gas Notified Time [id number] Blood Gas Notified By Yvon winn rrt Lactic Acid Level 8.7 *H 0.4-2.0 mmol/L Magnesium Level 2.2 1.6-2.6 mg/dL Troponin I High Sensitivity 4380 *H </=34 ng/L Urine Color Yellow Yellow Urine Clarity Clear Clear Urine pH 6.0 5.0-9.0 Urine Specific [place] 1.033 1.001-1.035 Urine Protein 1+ H Negative Urine Ketones 3+ H Negative Urine Blood Negative Negative /uL Urine Nitrite Negative Negative Urine Bilirubin Negative Negative Urine Urobilinogen 2 H Negative mg/dL Urine Leukocyte Esterase Negative Negative /uL Urine RBC <1 0 - 4 /hpf Urine Microscopic WBC 1 0-5 /HPF Urine Squamous Epithelial Cells Few <5 /hpf Urine Bacteria None seen None Seen /hpf Urine Mucus Few None Seen Urine Glucose Normal Normal mg/dL Test 08/21/24 06:29 Range/Units White Blood Count 22.1 H 4.4-10.8 10^3/uL Red Blood Count 3.60 L 4.0-5.20 10^6/uL Hemoglobin 13.4 12.2-16.2 g/dL Hematocrit 41.5 36.0-46.0 % Mean Corpuscular Volume 115.5 H 80.0-100.0 fL Mean Corpuscular Hemoglobin 37.2 H 28.0-32.0 pg Mean Corpuscular Hemoglobin Concent 32.3 32.0-36.0 g/dL Red Cell Distribution Width 15.0 H 11.8-14.3 % Platelet Count 488 H 140-450 10^3/uL Mean Platelet Volume 9.5 6.9-10.8 fL Neutrophils (%) (Auto) 91.1 H 37.0-80.0 % Lymphocytes (%) (Auto) 5.4 L 10.0-50.0 % Monocytes (%) (Auto) 3.3 0.0-12.0 % Eosinophils (%) (Auto) 0.0 0.0-7.0 % Basophils (%) (Auto) 0.2 0.0-2.0 % Neutrophils # (Auto) 20.1 H 1.6-8.6 10 ^3/uL Lymphocytes # (Auto) 1.2 0.4-5.4 10 ^3/uL Monocytes # (Auto) 0.7 0-1.3 10 ^3/uL Eosinophils # (Auto) 0 0-0.8 10 ^3/uL Basophils # (Auto) 0 0-0.2 10 ^3/uL Nucleated Red Blood Cells 0.0 % Sodium Level 134 L 136-145 mmol/L Potassium Level 3.8 3.5-5.1 mmol/L Chloride Level 101 98-107 mmol/L Carbon Dioxide Level 11 L 20-31 mmol/L Anion Gap 22 H 5-15 Blood Urea Nitrogen 11 9-23 mg/dL Creatinine 1.08 H 0.550-1.02 mg/dL Glomerular Filtration Rate Calc 56 >90 mL/min BUN/Creatinine Ratio 10.2 10.0-20.0 Serum Glucose 382 H 74-106 mg/dL Calcium Level 10.2 8.7-10.4 mg/dL Assessment NSTEMI PEA Cardiac Arrest Hypoxic Respiratory Failure ARDS/Pneumonia Acute CHF Severe Sepsis, Lactic Acidosis Chemical Inhalation, exposure HX HTN Plan/Recommendation Case Discussed with Dr Lemus. While in the ER patient had episode of PEA and was coded for 2nd time. Spoke with daughter as well as ER physician speaking with daughter. Patient very poor prognosis. Per daughter, patient's wishes were not to have any type of medical intervention, CPR, mechanical ventilation or heroic measures performed. Patient made complete DNR, CPR was discontinued, the patient with TOD 0937. Critical care, time spent: 48 minutes This medical document was created using an electronic medical record system with voice recognition software and computerized dictation system. Although this document has been carefully reviewed, there might still be some phonetic and typographical errors. Occasional wrong-word or ``sound-alike substitutions may have occurred due to the inherent limitations of voice recognition software. These areas are purely typographical due to imperfections of the software programs and do not reflect any compromise in the patient's medical care. Please read the chart carefully and recognize, using context, where these substitutions have occurred. Thank you for allowing me to participate in the management of this patient. The treatment plan was discussed with and agreed upon by patient/family including requesting consultants and ordering of imaging/procedures. Plan discussed with: Spouse NYHA Physical activity limitations: Class4(Severe)discomfort Date of Service: Aug 21, 2024 Billing Provider: KENNEDI DOCKERY Cardiology Common Codes: 45310-[id number] INP/OBS CARE (High), [id number] CARE 30-74 MIN KENNEDI DOCKERY Aug 21, 2024 10:46
[2024-08-21] MEDS ORDERED: ACCU-CHEK COMFORT CURVE STRIP VI SCH (12:00)
[2024-08-21] MEDS ORDERED: InsuLIN REG 1unit/0.01ml Soln (100units/ml) SC SCH (12:00)
[2024-08-21] MEDS ORDERED: CALCIUM CHL(10%) 100MG/ML 10ML VIAL IV ONE (12:06)
[2024-08-21] MEDS ORDERED: EPINEPHrine HCL 1 MG/10 ML SYRG IV ONE (12:17)
[2024-08-21] MEDS ORDERED: methylPREDNISolone SOD SUCC 125 MG/2 ML VL IV SCH (14:00)
[2024-08-21] MEDS ORDERED: CLINDAMYCIN 600MG IV 50 ML IV SCH (14:00)
--- NOTE | 2024-08-21 19:13 | ECG ---
[facility] Test Date: 2024-08-21 Test Time: 08:07:49 Pat Name: DAMARIS BRIGHT Department: ED Room: [address] [place] [address] Gender: F Speech Language Therapist: NEERU : [id number] Requested By: DIANA GUTIERREZ Order Number: [id number] Reading MD: Frederick Lemus Measurements Intervals [place] Rate: 128 P: 71 [place]: 119 QRS: 87 QRSD: 95 T: 200 QT: 314 QTc: 459 Interpretive Statements Sinus tachycardia Borderline right axis deviation Posterior infarct, acute (LCx) Electronically Signed On 08-22-2024 14:20:16 PDT by Frederick Lemus Please click the below link to view image of tracing.
--- NOTE | 2024-08-21 19:50 | DVHINCON2 ---
Date of service: Aug 21, 2024 Referring Physician Malinda Shaffer NP Reason for Consultation Acute hypoxic respiratory failure requiring mechanical ventilator and pneumonia History of Present Illness A 69-year-old woman with past medical history of hypertension and arthritis who presents to the ED today with c/o shortness of breath, onset 5 AM. Patient lives alone, daughter visited today and noted pt to have tongue swelling and shortness of breath. Daughter gave Mucinex and albuterol inhaler, which provided minimal relief. Daughter brings her in for evaluation. Patient also has had multiple falls. Apparently 2 weeks prior patient was cleaning her house and mixed CLR with some bleach and had a chemical reaction which affected patient - developed increased shortness of breath and throat burning. Upon evaluation in the ER patient noted to have significant respiratory distress, developed NSTEMI with ROSC achieved, subsequently intubated and placed on vent. Troponins trending 4639, 4380. CXR showing pulmonary congestion and edema possible pneumonia. CT showed bilateral ground-glass opacities with bibasilar consolidation severe pulmonary edema, pneumonia, ARDS. CT head negative for acute pathology. Patient was admitted for further care and pulmonary consultation is requested for evaluation and management due to the above findings. Review of Systems: Unable to obtain d/t intubated status Past Medical History: Hypertension and arthritis Past Surgical History: None Medications: Reviewed. Allergies: No known drug allergies. Family History: No family history of premature CAD. No family history of lung disorders. Social History: Former smoker. Occasional alcohol use. No illicit drug use. Allergies: Coded Allergies: NO KNOWN ALLERGIES (Unverified , 08/21/24) Current Medications Current Medications Medications (Trade) Dose Ordered Sig/Kathleen Route PRN Reason Start Time Stop Time Status Last Admin Midazolam HCl 50 ml @ 1 mls/hr Q24H IV 08/21/24 07:15 08/21/24 08:04 Ceftriaxone Sodium 50 ml @ 100 mls/hr DAILY@09 IV 08/21/24 09:00 Clindamycin Phosphate 50 ml @ 50 mls/hr Q8HR IV 08/21/24 14:00 Methylprednisolone Sodium Succinate (Solu Medrol) 80 mg Q8HR IV 08/21/24 14:00 Albuterol (Ventolin Medneb) 2.5 mg Q4HR NEB 08/21/24 10:00 Ipratropium Lynn (Atrovent Medneb) 0.5 mg Q4HR NEB 08/21/24 10:00 Sodium Chloride 1,000 ml @ 100 mls/hr Q10H IV 08/21/24 08:30 Ondansetron HCl (Zofran) 4 mg Q4HP PRN IV NAUSEA / VOMITING 08/21/24 08:30 Enoxaparin Sodium (Lovenox) 40 mg DAILY SC 08/21/24 10:00 Acetaminophen (Tylenol Tablet) 650 mg Q6HP PRN PO PAIN SCALE 1-3 OR TEMP>100.4 08/21/24 08:30 Nitroglycerin (Ntrostat Sublingual) 0.4 mg Q5MINP PRN SL FOR CHEST PAIN 08/21/24 08:30 Morphine Sulfate 2 mg Q30M PRN IV FOR CHEST PAIN 08/21/24 08:30 Diagnostic Test (Pha) (Accu-Chek Comfort Curve T) 1 strip Q6HR 08/21/24 12:00 Insulin Human Regular (InsuLIN R) Q6HR SC 08/21/24 12:00 Dextrose 50 ml UD PRN IV Blood Sugar LESS THAN 60 08/21/24 08:30 Famotidine (Pepcid Injection) 20 mg DAILY IV 08/21/24 10:00 Furosemide (Lasix Injection) 40 mg DAILY IV 08/21/24 10:00 Dopamine HCl/ Dextrose 250 ml @ 13.5 mls/hr [id number] IV 08/21/24 09:45 08/21/24 08:49 Epinephrine HCl 250 ml @ 7.5 mls/hr Q24H IV 08/21/24 09:45 08/21/24 08:49 Vital Signs Vital Signs Date Time Temp Pulse Resp B/P (MAP) Pulse Ox O2 Delivery O2 Flow Rate FiO2 08/21/24 09:48 125 18 100 Mechanical Ventilator+ 100 100 08/21/24 09:40 203.7 08/21/24 09:37 0/0 08/21/24 06:27 4 Physical Exam Gen.: Patient lying in bed in medical ICU. Sedated, intubated on mechanical ventilator. Head: Normocephalic, atraumatic. Eyes: PERRLA. Ears: Normal external anatomy. Throat: Endotracheal tube and orogastric tube in place. Neck: Supple, trachea midline. Chest: Transmitted breath sounds bilaterally. Decreased air entry bilaterally. No wheezing. Bibasilar crackles. Cardiovascular: Positive S1, positive S2. Regular rate and rhythm. Abdomen: Positive bowel sounds in all 4 quadrants. Soft, nontender, nondistended. : [place] in place. Normal external genitalia. Rectal: Deferred. Skin: Warm, dry. Intact. Extremities: 2+ radial pulses bilaterally. No lower extremity edema. Neuro: Sedated. Labs/Diagnostic Data Labs Test 08/21/24 08:15 08/21/24 07:58 08/21/24 07:28 08/21/24 07:13 Range/Units Blood Gas Specimen Type Arterial Blood Gas Sample Site Right radial Blood Gas Patient Temperature 37.0 Arterial Blood Date Drawn [id number] Arterial Blood pH 7.060 *L 7.350-7.450 Arterial Blood Partial Pressure CO2 43.8 32.0-45.0 mmHg Arterial Blood Partial Pressure O2 131.8 H 83.0-108.0 mmHg Arterial Blood HCO3 12.1 L 21.0-28.0 mmol/L Arterial Blood Oxygen Saturation 97.4 94.0-98.0 % Arterial Blood Base Excess -17.8 L -2.0-3.0 mmol/L Arterial Blood Oxyhemoglobin 96.3 94.0-98.0 % Arterial Blood Carboxyhemoglobin 0.8 0.5-1.5 % Arterial Blood Methemoglobin 0.3 0.0-1.5 % Saul Test Modified Blood Gas Total Hemoglobin 14.30 12.0-16.0 g/dL Blood Gas Set Respiration Rate 18.0 Blood Gas Modality Vent - ac FiO2 % 100.0 Blood Gas Tidal Volume 500.0 Blood Gas PEEP or CPAP 5.0 Blood Gas Critical Value Read Back Yes Blood Gas Notified Whom Shelbi simmons md Blood Gas Notified Time [id number] Blood Gas Notified By Yvon winn rrt Lactic Acid Level 8.7 *H 0.4-2.0 mmol/L Magnesium Level 2.2 1.6-2.6 mg/dL Troponin I High Sensitivity 4380 *H </=34 ng/L Urine Color Yellow Yellow Urine Clarity Clear Clear Urine pH 6.0 5.0-9.0 Urine Specific Atkins 1.033 1.001-1.035 Urine Protein 1+ H Negative Urine Ketones 3+ H Negative Urine Blood Negative Negative /uL Urine Nitrite Negative Negative Urine Bilirubin Negative Negative Urine Urobilinogen 2 H Negative mg/dL Urine Leukocyte Esterase Negative Negative /uL Urine RBC <1 0 - 4 /hpf Urine Microscopic WBC 1 0-5 /HPF Urine Squamous Epithelial Cells Few <5 /hpf Urine Bacteria None seen None Seen /hpf Urine Mucus Few None Seen Urine Glucose Normal Normal mg/dL Test 08/21/24 06:29 Range/Units White Blood Count 22.1 H 4.4-10.8 10^3/uL Red Blood Count 3.60 L 4.0-5.20 10^6/uL Hemoglobin 13.4 12.2-16.2 g/dL Hematocrit 41.5 36.0-46.0 % Mean Corpuscular Volume 115.5 H 80.0-100.0 fL Mean Corpuscular Hemoglobin 37.2 H 28.0-32.0 pg Mean Corpuscular Hemoglobin Concent 32.3 32.0-36.0 g/dL Red Cell Distribution Width 15.0 H 11.8-14.3 % Platelet Count 488 H 140-450 10^3/uL Mean Platelet Volume 9.5 6.9-10.8 fL Neutrophils (%) (Auto) 91.1 H 37.0-80.0 % Lymphocytes (%) (Auto) 5.4 L 10.0-50.0 % Monocytes (%) (Auto) 3.3 0.0-12.0 % Eosinophils (%) (Auto) 0.0 0.0-7.0 % Basophils (%) (Auto) 0.2 0.0-2.0 % Neutrophils # (Auto) 20.1 H 1.6-8.6 10 ^3/uL Lymphocytes # (Auto) 1.2 0.4-5.4 10 ^3/uL Monocytes # (Auto) 0.7 0-1.3 10 ^3/uL Eosinophils # (Auto) 0 0-0.8 10 ^3/uL Basophils # (Auto) 0 0-0.2 10 ^3/uL Nucleated Red Blood Cells 0.0 % Sodium Level 134 L 136-145 mmol/L Potassium Level 3.8 3.5-5.1 mmol/L Chloride Level 101 98-107 mmol/L Carbon Dioxide Level 11 L 20-31 mmol/L Anion Gap 22 H 5-15 Blood Urea Nitrogen 11 9-23 mg/dL Creatinine 1.08 H 0.550-1.02 mg/dL Glomerular Filtration Rate Calc 56 >90 mL/min BUN/Creatinine Ratio 10.2 10.0-20.0 Serum Glucose 382 H 74-106 mg/dL Hemoglobin A1c 5.0 <5.7 % A1C Calcium Level 10.2 8.7-10.4 mg/dL B-Type Natriuretic Peptide 723.99 0-100 pg/mL Assessment Impression: Acute hypoxic respiratory failure On mechanical ventilator Non-ST elevation myocardial infarction S/p ROSC Sepsis Pneumonia Leukocytosis Plan: s/p intubation on mechanical ventilator. CXR showing pulmonary congestion and edema, pneumonia. CT showed bilateral ground-glass opacities with bibasilar consolidation, severe pulmonary edema, pneumonia, ARDS. ABG reviewed, severe acidemia; pH of 7.06, pCO2 44, pO2 133, bicarb 12.1, BE 17.8 Started bicarb drip. On AC mode; RR 18, VT 500, PEEP 5, FiO2 100% Titrate FIO2 to keep O2 saturation above 90%. VAP bundle. Daily ABG and CXR while intubated Sedate for ventilator synchrony - on Versed at 1 mg Continue antibiotics. F/u cultures. Monitor WBC IV steroids Pressors if necessary for hemodynamic support Titrate to keep mean arterial pressure greater than 65 mmHg. Diurese with Lasix Monitor renal function Monitor electrolytes. Supplement as necessary. Monitor ins and outs. Maintain euvolemia. GI prophylaxis. DVT prophylaxis. Prognosis: Poor given patient's multiple co-morbidities. Condition: Critical Addendum: Patient Time of pronounced 0937 hours. Rest of plan per hospitalist and other consultants. A total of 35 minutes of critical care time was spent reviewing the patient record, examining the patient, making a diagnostic and therapeutic plan, discussing this plan with the medical personnel, following up on diagnostic studies and following the patient for clinical stability excluding any and all procedures. At least 50% of this time was spent in direct, [id number] contact. Thank you, DANNIELLE Shaffer, for allowing me to participate in this patient's care. Further recommendations will depend on the patient's clinical course. Please do not hesitate to contact me if you have any questions or concerns. This medical document was created using an electronic medical record system with [employer] system. Although these documentations are being carefully reviewed, there may still be some phonetic and typographical changes. The errors are purely typographical, due to imperfection on the software program, and do not reflect any compromise in the patient's medical care. Plan discussed with: Other (RN/[employer]ICER Deena/) LISA WARD MD Aug 21, 2024 19:50
--- NOTE | 2024-08-23 12:03 | ECG ---
[facility] Test Date: 2024-08-21 Test Time: 06:12:50 Pat Name: DAMARIS BRIGHT Department: ED Room: [address] [place] [address] Gender: F [employer]: rex : [id number] Requested By: DIANA GUTIERREZ Order Number: [id number] Reading MD: Measurements Intervals [place] Rate: 109 P: 45 OK: 133 QRS: 84 QRSD: 120 T: -78 QT: 329 QTc: 444 Interpretive Statements Sinus tachycardia Nonspecific intraventricular conduction delay Repol abnrm, severe global ischemia (LM/MVD) Please click the below link to view image of tracing.
== END 2024-08-21 09:37 | DRG 871 ==
LOC: EDBD 06:10 → ER 06:17 → OVERFLOW 08:28
PROC: 02HV33Z Insertion of Infusion Device into Superior Vena Cava, Percutaneous Approach (ICD-10-PCS; principal; 2024-08-21)
PROC: 5A12012 Performance of Cardiac Output, Single, Manual (ICD-10-PCS; 2024-08-21)
PROC: 0BH17EZ Insertion of Endotracheal Airway into Trachea, Via Natural or Artificial Opening (ICD-10-PCS; 2024-08-21)
PROC: 5A1935Z Respiratory Ventilation, Less than 24 Consecutive Hours (ICD-10-PCS; 2024-08-21)
DX: A41.9 Sepsis, unspecified organism (principal); I21.4 Non-ST elevation (NSTEMI) myocardial infarction; J80 Acute respiratory distress syndrome; J96.01 Acute respiratory failure with hypoxia; J18.9 Pneumonia, unspecified organism; E87.1 Hypo-osmolality and hyponatremia; N17.9 Acute kidney failure, unspecified; E87.20 Acidosis, unspecified; R65.20 Severe sepsis without septic shock; I16.0 Hypertensive urgency; I11.0 Hypertensive heart disease with heart failure; R29.6 Repeated falls; R73.9 Hyperglycemia, unspecified; I45.9 Conduction disorder, unspecified; I46.9 Cardiac arrest, cause unspecified; I50.9 Heart failure, unspecified; M54.9 Dorsalgia, unspecified; Z66 Do not resuscitate; Z87.891 Personal history of nicotine dependence
CPT/HCPCS: 31500; 36415; 36556; 36600; 70450; 71045; 71250; 74176; 80048; 81001; 82805; 83036; 83605; 83735; 83880; 84484; 85025; 87040; 87070; 87205; 92950; 93005; 94002; 94003; 94640; 99291; 99292; G0378; J0171; J3490